=== PATIENT | male | born 1940 | race Hispanic/Latino ===

== ENCOUNTER 2017-06-09 12:08 | Observation (INO) | payer OTHER ==
[~2017-06-09] VITALS: Ht 180.3 cm; Wt 109.9 kg
[~2017-06-09 12:08] MED LIST: ALDACTONE25 MG PO; ASA81EC PO; ASPIRIN81 M1 PO; ASPIRIN81 MG PO; AZITHROMYCIN250 MG PO; DIGOXIN250 MCG PO; GABAPENTIN300 MG PO; GLIPIZIDE10 MG PO; GLUCOPHAGE1000 MG PO; HUMALOG MI100 UNIT/2 SC; HYDROXYZINE HCL25 MG PO; ISOSORBIDE DINI20 MG PO; LASIX20 MG PO; LASIX40 MG PO; LEVEMIR 3M100 UNITS/ SQ; LISINOPRIL20 MG PO; LOPRESSOR25 MG PO; LOPRESSOR50 MG PO; LYRICA150 MG PO; METOPROLOL TART25 MG PO; NIACIN500 M1 PO; NITROGLYCERIN0.4 MG SL; NOVOLIN 70100 UNIT/2 SQ; ONGLYZA5 MG PO; PANTOPRAZOLE SO20 MG PO; PLAVIX75 MG PO; ROBAXIN-750750 MG PO; SYNTHROID50 MCG PO; TESTOSTERO200 MG/1 M IM; TRIAMTERENE-HCTZ1 EA PO; ULTRAM 50MG50 MG PO; VITAMIN B12-FO1 EACH PO; VITAMIN C1000 MG PO; VITAMIN D32000 UNI1 PO; ZANAFLEX4 M1 PO; ZOCOR40 MG PO
[2017-06-09] MEDS ORDERED: DEXTROSE 50% SYRINGE 50 ML IV STA (13:44)
[2017-06-09 13:54] LABS: BASOPHILS # (AUTO) 0.1 (0.0-0.1); BASOPHILS % 0.8 % (0.0-1.0); EOSINOPHILS # (AUTO) 0.1 (0.0-0.4); EOSINOPHILS % 2.1 % (0.0-6.0); HEMATOCRIT 36.4 % (38.2-49.6); HEMOGLOBIN 11.7 g/dL (14.0-18.0); LYMPHOCYTES # (AUTO) 0.9 (1.0-3.2); LYMPHOCYTES % 12.9 % (18.0-39.1); MEAN CORPUSCULAR HEMOGLOBIN 29.8 pg (28-32); MEAN CORPUSCULAR HGB CONC 32.1 g/dL (31-35); MEAN CORPUSCULAR VOLUME 92.9 fL (81-99); MONOCYTES # (AUTO) 0.5 (0.2-0.8); MONOCYTES % 7.9 % (4.4-11.3); NEUTROPHILS % 76.1 % (38.7-80.0); PLATELET COUNT 217 x10e3/uL (140-360); RED BLOOD COUNT 3.92 x10e6/uL (4.3-5.7); RED CELL DISTRIBUTION WIDTH 14.6 % (11.7-14.4)
[2017-06-09 14:08] LABS: ALBUMIN 3.1 g/dL (3.5-5.0); ALBUMIN/GLOBULIN RATIO 0.7 (0.8-2.0); CREATININE, SERUM 1.94 mg/dL (0.72-1.25)
[2017-06-09] MEDS ORDERED: DEXTROSE 50% SYRINGE 50 ML IV ONE (14:30)
[2017-06-09 15:03] LABS: CREATINE KINASE MB 2.5 ng/mL (0.00-5.00); TROPONIN I 0.119 ng/mL (0-0.300)
[2017-06-09] MEDS ORDERED: PLAVIX75 MG PO (15:03)
[2017-06-09] MEDS ORDERED: SPIRONOLACTONE50 MG PO (15:07)
[2017-06-09] MEDS ORDERED: DEXTROSE 5%/0.9% SOD CHL 1,000 ML IV ONE (15:15)
--- NOTE | 2017-06-09 15:16 | Diagnostic Imaging Report ---
Examination: Single AP view of the chest. COMPARISON: November 24, 2016 INDICATION: Weakness hypoglycemia DISCUSSION: Lines/tubes: Sternotomy wires. Lungs: Pulmonary venous congestion. Pleura: There is no pleural effusion or pneumothorax. Heart and mediastinum: Cardiomegaly Bones and soft tissues: No acute bony abnormalities. IMPRESSION: Cardiomegaly with pulmonary venous congestion Signed by: Dr. Tapan Wu M.D. on 06/09/2017 3:12 PM
[2017-06-09] MEDS ORDERED: ASPIRIN 81 MG CHEW TAB PO ONE (15:30)
[2017-06-09] MEDS ORDERED: FUROSEMIDE INJ 10 MG/ML 4 ML VIAL IV ONE (16:00)
[2017-06-09 16:22] LABS: BILIRUBIN,URINE NEGATIVE (NEGATIVE); KETONES,URINE NEGATIVE (NEGATIVE); LEUKOCYTE ESTERASE ,URINE TRACE (NEGATIVE); NITRITE,URINE NEGATIVE (NEGATIVE); PROTEIN,URINE DIPSTICK NEGATIVE (NEGATIVE); URINE UROBILINOGEN 0.2 mg/dL (0.2 - 1)
[2017-06-09 16:24] LABS: CLARITY,URINE HAZY (CLEAR); COLOR,URINE YELLOW (YELLOW)
[2017-06-09 16:30] LABS: BACTERIA,URINE FEW /HPF; EPITHELIAL CELLS,URINE FEW /LPF; RBC,URINE 0-5 /HPF (0-5); WBC,URINE (MAN) 0-5 /HPF (0-5)
[2017-06-09] MEDS ORDERED: DEXTROSE 50% SYRINGE 50 ML IV PRN (17:45)
[2017-06-09] MEDS ORDERED: SODIUM CHLORIDE FLUSH 10 ML SYR INJ PRN (17:45)
[2017-06-09] MEDS ORDERED: DEXTROSE 10% 500 ML IV ONE (17:45)
[2017-06-09] MEDS: INSULIN REGULAR, HUMAN 100 UNIT/1 ML 3ML VIAL SQ SCH (20:55)
[2017-06-09 21:00] VITALS: BP 112/66
[2017-06-09 21:32] VITALS: BP 112/66
[2017-06-09 22:25] VITALS: BP 98/56
[2017-06-09 23:25] VITALS: BP 102/61
[2017-06-10] VITALS (15 sets, daily range): BP systolic 96–121; BP diastolic 55–79
[2017-06-10 05:54] LABS: BASOPHILS # (AUTO) 0.1 (0.0-0.1); EOSINOPHILS # (AUTO) 0.3 (0.0-0.4); EOSINOPHILS % 5.4 % (0.0-6.0); HEMATOCRIT 32.5 % (38.2-49.6); HEMOGLOBIN 10.5 g/dL (14.0-18.0); LYMPHOCYTES # (AUTO) 1.2 (1.0-3.2); LYMPHOCYTES % 18.9 % (18.0-39.1); MEAN CORPUSCULAR HEMOGLOBIN 29.4 pg (28-32); MEAN CORPUSCULAR HGB CONC 32.3 g/dL (31-35); MONOCYTES # (AUTO) 0.8 (0.2-0.8); MONOCYTES % 11.9 % (4.4-11.3); NEUTROPHILS # (AUTO) 3.9 (2.1-6.9); NEUTROPHILS % 62.5 % (38.7-80.0); PLATELET COUNT 217 x10e3/uL (140-360); RED BLOOD COUNT 3.57 x10e6/uL (4.3-5.7); RED CELL DISTRIBUTION WIDTH 14.5 % (11.7-14.4)
--- NOTE | 2017-06-10 06:47 | Diagnostic Imaging Report ---
EXAM: CHEST SINGLE (PORTABLE), AP 1 view DATE: 06/10/2017 7:00 AM Time stamp on exam: 0611 hours INDICATION: Congestive heart failure COMPARISON: None FINDINGS: LINES/TUBES: None LUNGS: Vascular congestion and bibasilar atelectasis PLEURA: No effusions or pneumothorax. HEART AND MEDIASTINUM: Cardiomegaly BONES AND SOFT TISSUES: No acute findings. IMPRESSION: No interval change Signed by: Dr. Alpa Chun M.D. on 06/10/2017 6:44 AM
[2017-06-10 07:05] LABS: CREATINE KINASE MB 2.3 ng/mL (0.00-5.00); TROPONIN I 0.215 ng/mL (0-0.300)
[2017-06-10 07:19] LABS: ANION GAP 11.9 mmol/L (8-16); CALCIUM 7.7 mg/dL (8.4-10.2); CREATININE, SERUM 1.71 mg/dL (0.72-1.25); POTASSIUM 3.9 mmol/L (3.5-5.1)
[2017-06-10] MEDS: INSULIN REGULAR, HUMAN 100 UNIT/1 ML 3ML VIAL SQ SCH ×3 (07:30→17:15)
[2017-06-10] MEDS: FUROSEMIDE INJ 10 MG/ML 4 ML VIAL IV SCH ×2 (10:10→17:18)
[2017-06-10 10:31] LABS: CREATINE KINASE MB 2.5 ng/mL (0.00-5.00); TROPONIN I 0.298 ng/mL (0-0.300)
[2017-06-10] MEDS ORDERED: DEXTROSE 5%/0.9% SOD CHL 0 ML IV ONE (14:42)
[2017-06-10] MEDS ORDERED: GABAPENTIN 300 MG CAP ONE (15:43)
[2017-06-10] MEDS ORDERED: NITROGLYCERIN 0.4 MG SUBL SL SCH (15:45)
[2017-06-10] MEDS ORDERED: GABAPENTIN 300 MG CAP PO ONE ×2 (16:15→19:00)
[2017-06-10] MEDS ORDERED: METOCLOPRAMIDE HCL 10 MG TAB PO SCH (16:30)
[2017-06-10] MEDS ORDERED: FUROSEMIDE 40 MG TAB PO SCH (17:00)
[2017-06-10] MEDS ORDERED: METOPROLOL TARTRATE 25 MG TAB PO SCH (17:00)
[2017-06-10] MEDS ORDERED: ISOSORBIDE DINITRATE 20 MG TAB PO SCH (17:00)
[2017-06-10] MEDS ORDERED: SPIRONOLACTONE 25 MG TAB PO SCH (17:00)
[2017-06-10] MEDS ORDERED: REGLAN10 MG PO (18:06)
[2017-06-10] MEDS ORDERED: TRAMADOL HCL 50 MG TAB PO SCH (21:00)
[2017-06-10] MEDS ORDERED: GABAPENTIN 300 MG CAP PO SCH (21:00)
[2017-06-10] MEDS ORDERED: SIMVASTATIN 20 MG TAB PO SCH (21:00)
[2017-06-11] MEDS ORDERED: LEVOTHYROXINE SODIUM 75 MCG TAB PO SCH (06:00)
[2017-06-11] MEDS ORDERED: PANTOPRAZOLE SOD 40 MG TABEC PO SCH (07:30)
[2017-06-11] MEDS ORDERED: ASCORBIC ACID 500 MG TAB PO SCH (09:00)
[2017-06-11] MEDS ORDERED: NON-FORMULARY MEDICATION (Cholecalciferol (Vitamin D3) (Vitamin D3) 1 TAB) PO SCH (09:00)
[2017-06-11] MEDS ORDERED: ASPIRIN 81 MG CHEW TAB PO SCH (09:00)
[2017-06-11] MEDS ORDERED: CLOPIDOGREL BISULFATE 75 MG TAB PO SCH (09:00)
--- NOTE | 2017-07-05 09:48 | History and Physical ---
Patient was placed in observation. CHIEF COMPLAINT: Generalized weakness. HISTORY: Patient is a 76-year-old male who came in with hypoglycemia. The patient stated that he was having some dizziness. The patient with low blood sugar. Apparently, he was taking some medication for his diabetes. The patient was otherwise stable. Blood sugar was much improved. He did receive multiple doses of D50. The patient is asymptomatic on visit. PAST MEDICAL HISTORY: Diabetes, type 2, hyperlipidemia, hypertension, hypothyroidism, history of chronic kidney disease, atrial fibrillation, and coronary disease. PAST SURGICAL HISTORY: Noncontributory. SOCIAL HISTORY: Patient does not smoke or use alcohol. No regular drugs. ALLERGIES: NO KNOWN ALLERGIES. HOME MEDICATIONS: List reviewed. REVIEW OF SYSTEMS: As mentioned above. The patient is completely asymptomatic. PHYSICAL EXAMINATION VITAL SIGNS: Temperature is 98, blood pressure 100/67, pulse rate 64, respirations 18. GENERAL: The patient is not in acute distress. He is awake. HEENT: Normocephalic, atraumatic and anicteric. NECK: Supple grossly. PULMONARY: Clear. CARDIOVASCULAR: Regular rate and rhythm. ABDOMEN: Soft and unremarkable. EXTREMITIES: No cyanosis or edema. NEUROLOGICAL: No focal deficit. LABORATORY: Sodium 135, potassium 3.9, chloride 107, bicarb 20, BUN 32, creatinine 1.7, glucose 98. WBC 6, hemoglobin 10.5, hematocrit 33, and platelets 217,000. IMPRESSION: Hypoglycemia, resolved. The patient is instructed on his insulin adjustment. He needs to eat if he takes insulin. Also, educated the patient on diabetes. The patient is discharged home to follow up with Dr. Kalen Anne, his family physician. The patient expressed understanding. He will follow up closely and monitor his blood sugar closely. Job#: [id number] ALDEN
--- NOTE | 2017-07-05 12:10 | Discharge Summary ---
FINAL DIAGNOSIS: Hypoglycemia secondary to taking insulin and not eating. HOSPITAL COURSE: Patient was given D50. He is doing much better. He is back to his usual baseline. Discussed with the patient at length regarding compliancy to insulin and diet. The patient expressed understanding. He will follow up with Dr. Kalen Anne. The patient wanted to go home today. The patient is discharged home. Job#: [id number] VAS
== END 2017-06-10 20:10 | disposition home or self-care (01) ==
LOC: ER 12:08 → INTOOBSV 17:54 → ERHOLD 17:54 → EDBEDREQSVC 19:40 → ICU 19:56
PROVIDERS: ADMIT Internal Medicine; ATTEND Internal Medicine
DX: E11.649 Type 2 diabetes mellitus with hypoglycemia without coma (principal); N17.9 Acute kidney failure, unspecified; E11.22 Type 2 diabetes mellitus with diabetic chronic kidney disease; I13.0 Hypertensive heart and chronic kidney disease with heart failure and stage 1 through stage 4 chronic kidney disease, or unspecified chronic kidney disease; I50.1 Left ventricular failure, unspecified; N18.9 Chronic kidney disease, unspecified; Z79.4 Long term (current) use of insulin; K21.9 Gastro-esophageal reflux disease without esophagitis; E03.9 Hypothyroidism, unspecified; I48.91 Unspecified atrial fibrillation; Z79.02 Long term (current) use of antithrombotics/antiplatelets; Z79.82 Long term (current) use of aspirin
CPT/HCPCS: 36415 ×2; 71010 ×2; 80048; 80053; 81001; 82550 ×2; 82553 ×2; 82948 ×2; 83735; 83880; 84443; 84484 ×2; 85025 ×2; 87086; 93005; 96361; 99284; G0378 ×2; J1940 ×2; J7042

== ENCOUNTER 2017-12-08 12:45 | Observation (INO) | payer OTHER ==
[~2017-12-08] VITALS: Ht 180.3 cm; Wt 123.4 kg
[~2017-12-08 12:45] MED LIST changes: +REGLAN10 MG PO; +SPIRONOLACTONE50 MG PO
--- OUTSIDE RECORDS SUMMARY | 2017-12-08 12:47 | XMS REPORT ---
Author Author [facility] Address Unknown Phone Unavailable Care Team Providers Care Meat Selector Name Role Phone AILYN VICKERS Unavailable Unavailable Problems This patient has no known problems. Allergies, Adverse Reactions, Alerts This patient has no known allergies or adverse reactions. Medications This patient has no known medications. Results Test Description Test Time Test Comments Text Results Atomic Results Result Comments CHEST SINGLE (PORTABLE) [address] [address] Patient Name: IVANNA PYLE MR #: [id number] : 1940 Age/Sex: 76/M Req #: [id number] Adm Physician: AILYN VICKERS MD Ordered by: CAROLINA CORTES MD Report #: [id number] Location: ICU Room/Bed: ICU [facility] Procedure: [id number] DX/CHEST SINGLE (PORTABLE) Exam Date: Exam Time: REPORT STATUS: Signed EXAM: CHEST SINGLE (PORTABLE), AP 1 view DATE: 06/10/2017 7:00 AM Time stamp on exam: 0611 hours INDICATION: Congestive heart failure COMPARISON: None FINDINGS: LINES/TUBES: None LUNGS: Vascular congestion and bibasilar atelectasis PLEURA: No effusions or pneumothorax. HEART AND MEDIASTINUM: Cardiomegaly BONES AND SOFT TISSUES: No acute findings. IMPRESSION: No interval change Signed by: Dr. Liu Chun M.D. on 06/10/2017 6:44 AM Dictated By: LIU CHUN MD Transcribed By: SINA on 643 COPY TO: CAROLINA CORTES MD CHEST SINGLE (PORTABLE) [place] [address] Patient Name: IVANNA PYLE MR #: [id number] : 1940 Age/Sex: 76/M Req #: [id number] Adm Physician: Ordered by: CAROLINA CORTES MD Report #: [id number] Location: ER Room/Bed: Procedure: [id number] DX/CHEST SINGLE (PORTABLE) Exam Date: 06/09/17 Exam Time: 1500 REPORT STATUS: Signed Examination: Single AP view of the chest. COMPARISON: November 24, 2016 INDICATION: Weakness hypoglycemia DISCUSSION: Lines/tubes: Sternotomy wires. Lungs: Pulmonary venous congestion. Pleura: There is no pleural effusion or pneumothorax. Heart and mediastinum: Cardiomegaly Bones and soft tissues: No acute bony abnormalities. IMPRESSION: Cardiomegaly with pulmonary venous congestion Signed by: Dr. Bernadine Quintero M.D. on 06/09/2017 3:12 PM Dictated By: BERNADINE QUINTERO MD 11 Transcribed By: SINA on 06/09/171511 COPY TO: CAROLINA CORTES MD
[2017-12-08 13:26] LABS: BASOPHILS # (AUTO) 0.1 (0.0-0.1); EOSINOPHILS # (AUTO) 0.3 (0.0-0.4); EOSINOPHILS % 5.1 % (0.0-6.0); HEMATOCRIT 37.6 % (38.2-49.6); HEMOGLOBIN 12.1 g/dL (14.0-18.0); LYMPHOCYTES # (AUTO) 0.7 (1.0-3.2); LYMPHOCYTES % 14.2 % (18.0-39.1); MEAN CORPUSCULAR HEMOGLOBIN 29.7 pg (28-32); MEAN CORPUSCULAR HGB CONC 32.2 g/dL (31-35); MEAN CORPUSCULAR VOLUME 92.4 fL (81-99); MONOCYTES # (AUTO) 0.5 (0.2-0.8); MONOCYTES % 9.3 % (4.4-11.3); NEUTROPHILS # (AUTO) 3.5 (2.1-6.9); PLATELET COUNT 157 x10e3/uL (140-360); RED BLOOD COUNT 4.07 x10e6/uL (4.3-5.7); RED CELL DISTRIBUTION WIDTH 16.5 % (11.7-14.4)
[2017-12-08] MEDS ORDERED: NITROGLYCERIN 0.4 MG SUBL SL ONE (13:30)
[2017-12-08] MEDS ORDERED: NITROGLYCERIN 2% OINT 1 GM PKT TOP ONE (13:30)
[2017-12-08 13:46] LABS: ALBUMIN 3.1 g/dL (3.5-5.0); ALBUMIN/GLOBULIN RATIO 0.7 (0.8-2.0); ANION GAP 14.3 mmol/L (8-16); CREATININE, SERUM 2.71 mg/dL (0.72-1.25); MAGNESIUM 1.6 MG/DL (1.3-2.1); POTASSIUM 4.3 mmol/L (3.5-5.1)
[2017-12-08 13:55] LABS: CREATINE KINASE MB 2.3 ng/mL (0-5.0)
[2017-12-08 14:08] LABS: FREE T4 (FREE THYROXINE) 0.98 ng/dL (0.9-1.8); THYROID STIMULATING HORMONE 4.114 uIU/mL (0.350-4.940)
--- NOTE | 2017-12-08 14:33 | Diagnostic Imaging Report ---
EXAMINATION: CHEST 2 VIEWS INDICATION: \S\DYSPNEA, RALES ON EXAM \[id number] \S\1325 COMPARISON: Chest radiograph 06/10/2017 FINDINGS: PA and lateral views TUBES and LINES: None. LUNGS: Lungs are moderately inflated. Central pulmonary venous congestion. Bibasilar atelectasis. PLEURA: Small right pleural effusion. No left effusion. No pneumothorax. HEART AND MEDIASTINUM: Stable moderate enlargement of the cardiac silhouette. Mediastinal clips. BONES AND SOFT TISSUES: No acute osseous lesion. Median sternotomy wires. Soft tissues are unremarkable. UPPER ABDOMEN: No free air under the diaphragm. IMPRESSION: Cardiomegaly with vascular congestion. Small right pleural effusion with adjacent atelectasis. Signed by: DR. Kade Wilks MD on 12/08/2017 2:29 PM
[2017-12-08] MEDS ORDERED: FUROSEMIDE INJ 10 MG/ML 4 ML VIAL IV ONE ×2 (15:00→16:00)
[2017-12-08] MEDS ORDERED: ASPIRIN 81 MG CHEW TAB PO ONE ×2 (15:00→16:00)
[2017-12-08] MEDS ORDERED: FUROSEMIDE INJ 10 MG/ML 4 ML VIAL ONE (15:05)
[2017-12-08] MEDS ORDERED: ASPIRIN 81 MG CHEW TAB ONE (15:05)
[2017-12-08 15:30] VITALS: BP 106/70
[2017-12-08 15:58] VITALS: BP 106/70
[2017-12-08] MEDS: FUROSEMIDE INJ 10 MG/ML 4 ML VIAL IV SCH (16:57)
[2017-12-08 19:57] VITALS: BP 106/70
[2017-12-08 20:00] VITALS: BP 111/70
[2017-12-08 21:05] VITALS: BP 111/70
[2017-12-08 21:06] LABS: BILIRUBIN,URINE NEGATIVE (NEGATIVE); CLARITY,URINE CLEAR (CLEAR); COLOR,URINE YELLOW (YELLOW); KETONES,URINE NEGATIVE (NEGATIVE); LEUKOCYTE ESTERASE ,URINE NEGATIVE (NEGATIVE); NITRITE,URINE NEGATIVE (NEGATIVE); PROTEIN,URINE DIPSTICK NEGATIVE (NEGATIVE); URINE UROBILINOGEN 0.2 mg/dL (0.2 - 1)
[2017-12-08 21:15] LABS: BACTERIA,URINE RARE /HPF; EPITHELIAL CELLS,URINE FEW /LPF; WBC,URINE (MAN) 0-5 /HPF (0-5)
[2017-12-09] VITALS (8 sets, daily range): BP systolic 98–106; BP diastolic 55–68
[2017-12-09 06:30] LABS: BASOPHILS # (AUTO) 0.1 (0.0-0.1); BASOPHILS % 1.1 % (0.0-1.0); EOSINOPHILS # (AUTO) 0.3 (0.0-0.4); EOSINOPHILS % 5.1 % (0.0-6.0); HEMATOCRIT 38.3 % (38.2-49.6); LYMPHOCYTES # (AUTO) 1.1 (1.0-3.2); LYMPHOCYTES % 19.6 % (18.0-39.1); MEAN CORPUSCULAR HEMOGLOBIN 29.3 pg (28-32); MEAN CORPUSCULAR HGB CONC 31.3 g/dL (31-35); MEAN CORPUSCULAR VOLUME 93.6 fL (81-99); MONOCYTES # (AUTO) 0.6 (0.2-0.8); MONOCYTES % 10.3 % (4.4-11.3); NEUTROPHILS # (AUTO) 3.6 (2.1-6.9); NEUTROPHILS % 63.7 % (38.7-80.0); PLATELET COUNT 166 x10e3/uL (140-360); RED BLOOD COUNT 4.09 x10e6/uL (4.3-5.7); RED CELL DISTRIBUTION WIDTH 16.4 % (11.7-14.4)
--- NOTE | 2017-12-09 06:37 | Diagnostic Imaging Report ---
EXAM: CHEST 2 VIEWS, PA and lateral INDICATION: Shortness of breath, congestive heart failure COMPARISON: PA and lateral view of the chest December 08, 2017 FINDINGS: LINES/TUBES: None LUNGS: Central vascular congestion and bibasilar atelectasis. PLEURA: Small bilateral pleural effusions. HEART AND MEDIASTINUM: Stable enlargement. BONES AND SOFT TISSUES: No acute findings. IMPRESSION: No interval change. Signed by: Dr. Alpa Chun M.D. on 12/09/2017 6:33 AM
[2017-12-09 07:09] LABS: ANION GAP 12.9 mmol/L (8-16); CALCIUM 9.2 mg/dL (8.4-10.2); CREATININE, SERUM 2.64 mg/dL (0.72-1.25); POTASSIUM 4.9 mmol/L (3.5-5.1)
[2017-12-09 07:18] LABS: CREATINE KINASE MB 1.8 ng/mL (0-5.0)
[2017-12-09] MEDS: FUROSEMIDE INJ 10 MG/ML 4 ML VIAL IV SCH ×4 (08:15→21:03)
[2017-12-09] MEDS ORDERED: NITROGLYCERIN 0.4 MG SUBL SL SCH (08:30)
[2017-12-09] MEDS ORDERED: METOCLOPRAMIDE HCL 10 MG TAB PO PRN (08:30)
[2017-12-09] MEDS ORDERED: LEVOTHYROXINE SODIUM 75 MCG TAB PO SCH (09:00)
[2017-12-09] MEDS ORDERED: METOPROLOL TARTRATE 25 MG TAB PO SCH ×2 (09:00→21:00)
[2017-12-09] MEDS ORDERED: NITROGLYCERIN 0.4 MG SUBL SL PRN (09:00)
[2017-12-09] MEDS: PANTOPRAZOLE SOD 40 MG TABEC PO SCH (09:38)
[2017-12-09] MEDS: METOLAZONE 5 MG TAB PO SCH (09:38)
[2017-12-09] MEDS: CLOPIDOGREL BISULFATE 75 MG TAB PO SCH (09:38)
[2017-12-09] MEDS: TRAMADOL HCL 50 MG TAB PO SCH ×3 (09:38→21:03)
[2017-12-09] MEDS: ASPIRIN 81 MG CHEW TAB PO SCH (09:38)
[2017-12-09] MEDS: SPIRONOLACTONE 25 MG TAB PO SCH ×2 (09:38→16:38)
--- NOTE | 2017-12-09 14:11 | History and Physical ---
The patient on observation. PRIMARY CARE PHYSICIAN: Dr. Kalen Anne. CHIEF COMPLAINT: Increasing swelling of lower extremities. HISTORY OF PRESENT ILLNESS: Patient is a 77-year-old male with chronic kidney disease and congestive heart failure at baseline. The patient is taking diuretics at home but feeling like he is having increasing shortness of breath. There is no pulmonary edema, but he does have vascular congestion on the chest x-ray. The patient is doing a little bit better with IV Lasix. The patient is stable at this time. PAST MEDICAL HISTORY: Chronic kidney disease, stage 3. Diabetes type 2. Hyperlipidemia. Hypertension. Hypothyroidism. History of paroxysmal atrial fibrillation. Coronary artery disease. PAST SURGICAL HISTORY: Noncontributory. SOCIAL HISTORY: Patient does not smoke or use alcohol. No recreational drugs. HOME MEDICATIONS: List reviewed. ALLERGIES: TO NO KNOWN ALLERGY. REVIEW OF SYSTEMS: As mentioned. PHYSICAL EXAMINATION: VITAL SIGNS: Temperature 98. Blood pressure 100/58. Pulse rate 67. Respirations 22. Exam no focal deficit. GENERAL: The patient is not in acute distress. He is awake. HEENT: Normocephalic, atraumatic. Anicteric. NECK: Supple grossly. PULMONARY: Diminished breath sounds at the bases with some rales. CARDIOVASCULAR: S1 and S2. Regular rate and rhythm. ABDOMEN: Soft, obese. EXTREMITIES: 2+ edema. NEUROLOGIC EXAM: No focal deficits. LABORATORY: Sodium is 139, potassium 4.9, chloride 101, bicarb 30. BUN 40, creatinine 2.6. Glucose 100. WBC is 5.7. Hemoglobin 12. Hematocrit is 38. Platelets is 166,000. IMPRESSION 1. Acute on chronic systolic dysfunction. 2. Congestive heart failure exacerbation. 3. Multiple chronic baseline problems. PLAN: Continue with IV Lasix 40 mg IV q.8 h.. Add on Zaroxolyn. Resume home medications except for oral furosemide. Adjust the patient's blood pressure medication. Job#: [id number]
[2017-12-09] MEDS: HUMULIN 70/30 VIAL SQ SCH (16:39)
[2017-12-09] MEDS ORDERED: GABAPENTIN 300 MG CAP PO SCH (21:00)
[2017-12-09] MEDS ORDERED: SIMVASTATIN 20 MG TAB PO SCH (21:00)
[2017-12-10] VITALS: BP 101/59
[2017-12-10 04:00] VITALS: BP 98/55
[2017-12-10] MEDS: FUROSEMIDE INJ 10 MG/ML 4 ML VIAL IV SCH (06:00)
[2017-12-10] MEDS ORDERED: LEVOTHYROXINE SODIUM 75 MCG TAB PO SCH (06:00)
[2017-12-10 06:14] LABS: BASOPHILS % 0.7 % (0.0-1.0); EOSINOPHILS # (AUTO) 0.3 (0.0-0.4); EOSINOPHILS % 5.7 % (0.0-6.0); HEMATOCRIT 37.6 % (38.2-49.6); HEMOGLOBIN 11.6 g/dL (14.0-18.0); LYMPHOCYTES # (AUTO) 0.9 (1.0-3.2); LYMPHOCYTES % 15.7 % (18.0-39.1); MEAN CORPUSCULAR HEMOGLOBIN 29.7 pg (28-32); MEAN CORPUSCULAR HGB CONC 30.9 g/dL (31-35); MEAN CORPUSCULAR VOLUME 96.4 fL (81-99); MONOCYTES # (AUTO) 0.7 (0.2-0.8); MONOCYTES % 13.7 % (4.4-11.3); NEUTROPHILS # (AUTO) 3.5 (2.1-6.9); PLATELET COUNT 153 x10e3/uL (140-360); RED CELL DISTRIBUTION WIDTH 16.3 % (11.7-14.4)
[2017-12-10 07:21] VITALS: BP 106/66
[2017-12-10] MEDS: PANTOPRAZOLE SOD 40 MG TABEC PO SCH (09:23)
[2017-12-10] MEDS: TRAMADOL HCL 50 MG TAB PO SCH (09:24)
[2017-12-10] MEDS: CLOPIDOGREL BISULFATE 75 MG TAB PO SCH (09:24)
[2017-12-10] MEDS: METOLAZONE 5 MG TAB PO SCH (09:24)
[2017-12-10] MEDS: SPIRONOLACTONE 25 MG TAB PO SCH (09:25)
[2017-12-10] MEDS: ASPIRIN 81 MG CHEW TAB PO SCH (09:25)
[2017-12-10] MEDS: HUMULIN 70/30 VIAL SQ SCH (09:27)
[2017-12-10 10:01] VITALS: BP 106/66
[2017-12-10 11:42] VITALS: BP 101/61
--- NOTE | 2017-12-10 13:26 | Discharge Summary ---
OBSERVATION PCP: Dr. Kalen Anne FINAL DIAGNOSES 1. [id number] systolic dysfunction congestive heart failure exacerbation. 2. Chronic kidney disease, stage 3 to stage 4. 3. Morbid obesity, baseline. 4. Coronary artery bypass surgery. 5. Cardiomyopathy. Ejection fraction 20% to 25%. SUMMARY: Patient is a 77-year-old male who came in with acute exacerbation of systolic dysfunction congestive heart failure. The patient at baseline with coronary disease with bypass surgery. He also had multiple chronic medical problems as well. He came in with increasing lower extremity edema. Apparently, he was not taking enough diuretic, and more importantly his blood pressure was systolic in the 100 and heart rate 50-60. His medication has been adjusted. He was add on metolazone 20 mg daily. He did receive a dose. He did diurese very well. His beta gary has been cut down. He will stop the isosorbide for now due to his blood pressure. Today, the patient is doing much better. He is diuresing well. He will be discharged home with the following instructions: 1. Stop the metoprolol 25 mg twice a day. 2. Isosorbide. Add on Lopressor 12.5 mg at night. 3. Add on Zaroxolyn 10 mg daily. He will continue his diuretic and other medications as the same. The patient is stable and discharged home today. He is comfortable. He does want to go home. He does have oxygen at home. The patient was discharged home today. Follow up with Dr. Kalen Anne, his PCP, and Dr. Brennon Blanco, his sandwich maker within this week. Job#: [id number] ALDEN
== END 2017-12-10 12:05 | disposition home or self-care (01) ==
LOC: ER 12:45 → ERHOLD 15:01 → IMCU 15:20
PROVIDERS: ADMIT Internal Medicine; ATTEND Internal Medicine
DX: I13.0 Hypertensive heart and chronic kidney disease with heart failure and stage 1 through stage 4 chronic kidney disease, or unspecified chronic kidney disease (principal); I50.23 Acute on chronic systolic (congestive) heart failure; E11.22 Type 2 diabetes mellitus with diabetic chronic kidney disease; I25.10 Atherosclerotic heart disease of native coronary artery without angina pectoris; Z95.1 Presence of aortocoronary bypass graft; N18.3 Chronic kidney disease, stage 3 (moderate); E78.5 Hyperlipidemia, unspecified; E03.9 Hypothyroidism, unspecified; I48.0 Paroxysmal atrial fibrillation; E66.01 Morbid (severe) obesity due to excess calories; I42.9 Cardiomyopathy, unspecified; Z68.37 Body mass index [BMI] 37.0-37.9, adult
CPT/HCPCS: 99284; J1940 ×2; S0164

== ENCOUNTER 2017-12-12 06:33 | Inpatient (IN) | payer OTHER ==
[~2017-12-12] VITALS: Ht 180.3 cm; Wt 126.6 kg
--- OUTSIDE RECORDS SUMMARY | 2017-12-12 06:38 | XMS REPORT | Continuity of Care Document ---
Author Author [facility] Organization [facility] Address [address] [place] [address] Phone Unavailable Care Team Providers Care Wood Boatbuilder Name Role Phone DWAIN DAVIS MD PCP Insurance Providers Guarantor Uziel Pyle Address [address] [place] [address] Email NONE Payer [facility] [employer] Policy Number [id number] Subscriber's Name Uziel Pyle Relationship 18 Self / Same As Patient Group Number [id number] Group Name [employer] - Medicare Advantage Divis Effective Date 17 Advance Directives Directive Response Recorded Date/Time Does the patient have an advance directive? No 12/08/17 3:52pm If yes, is advance directive on file with [facility]? No 12/08/17 3:52pm If not on file with [facility] will patient provide a copy? No 12/08/17 3:52pm Do you have a Directive to Physician? No 12/08/17 1:29pm Do you have a Medical Power of Workplace Relations Adviser? No 12/08/17 1:29pm Do you have an out of hospital Do Not Resuscitate Order? No 12/08/17 1:29pm Do you have any special needs we should be aware of? No 12/08/17 1:29pm Do you have a support person here with you today? Yes 12/08/17 1:29pm Did patient receive Notice of Privacy Practices? Yes 12/08/17 1:29pm Did patient receive patient rights and responsibilities? Yes 12/08/17 1:29pm Problems Medical Problem Onset Date Status CHF (congestive heart failure) Unknown CKD (chronic kidney disease) Unknown Chest pain 01/15/2015 Acute Non-STEMI (non-ST elevated myocardial infarction) 01/15/2015 Acute Peripheral edema Unknown SOB (shortness of breath) on exertion Unknown Medications Current Home Medications Medication Dose Units Route Directions Days Qty Instructions Start Date Aspirin 81 Mg Tab.chew 81 Mg Oral Daily Clopidogrel Bisulfate (Plavix) 75 Mg Tablet 75 Mg Oral Daily 30 Tab Furosemide (Lasix) 40 Mg Tablet 40 Mg Oral Twice A Day 30 Tab Gabapentin 300 Mg Capsule 300 Mg Oral Bedtime 60 Cap Hum Insulin Nph/Reg Insulin Hm (Novolin 70-30 [place]) 100 Unit/1 Ml Insuln.pen 25 Units Sub-Q Twice A Day Levothyroxine Sodium (Synthroid) 50 Mcg Tab 75 Mcg Oral Daily Metoclopramide Hcl (Reglan) 10 Mg Tablet 10 Mg Oral Before Meals as needed for Bloating Nitroglycerin 0.4 Mg Tab.subl 0.4 Mg Sublingual Every 5 Minutes Pantoprazole Sodium 20 Mg Tablet.dr 40 Mg Oral Daily Simvastatin (Zocor) 40 Mg Tablet 20 Mg Oral Bedtime Spironolactone (Aldactone) 25 Mg Tablet 50 Mg Oral Twice A Day Testosterone Cypionate 200 Mg/1 Ml Vial 200 Mg Intramusc Monthly Tramadol Hcl (Ultram 50MG*) 50 Mg Tab 50 Mg Oral Three Times A Day Past Home Medications Medication Directions Ordered Status [id number] 81 Mg Tabec, 81 Mg Oral Every Morning 01/21/15 Discontinued Ascorbic Acid (Vitamin C) 1,000 Mg Tablet, 1 Tab Oral Daily Discontinued Aspirin 81 Mg Tablet, 81 Mg Oral Daily Discontinued Azithromycin (Z-Collin) 250 Mg Tablet, Tab Oral Daily Discontinued Cholecalciferol (Vitamin D3) (Vitamin D3) 2,000 Unit Tablet, 1 Tab Oral Daily Discontinued Clopidogrel Bisulfate (Plavix) 75 Mg Tablet, 75 Mg Oral Daily 01/21/15 Discontinued Cyanocobalamin/Folic Acid (Vitamin T79-Dnitd Acid Tablet) 1 Each Tablet, 1000 Mcg Oral Daily Discontinued Digoxin 250 Mcg Tablet, 250 Mcg Oral Daily Discontinued Furosemide (Lasix) 20 Mg Tablet, 20 Mg Oral Every Morning Discontinued Glipizide 10 Mg Tablet, 10 Mg Oral Twice A Day Discontinued Hum Insulin Nph/Reg Insulin Hm (Novolin 70-30 [place]) 100 Unit/1 Ml Insuln.pen , 60 Units Sub-Q Pm Discontinued Hydroxyzine Hcl 25 Mg Tablet, 25 Mg Oral Qid Prn Discontinued Insulin Detemir (Levemir 3ML Flexpen*) 100 Units/Ml Inj, Sub-Q Bedtime Discontinued Insulin Npl/Insulin Lispro (Humalog Mix 75-25 Kwikpen) 100 Unit/1 Ml Insuln.pen , Subcutaneously Every Morning Discontinued Isosorbide Dinitrate 20 Mg Tablet, 20 Mg Oral Twice A Day Discontinued Isosorbide Dinitrate 20 Mg Tablet, 10 Mg Oral Twice A Day 01/21/15 Discontinued Lisinopril (Prinavil / Zestril) 20 Mg Tablet, 20 Mg Oral Twice A Day Discontinued Metformin Hcl (Glucophage) 1,000 Mg Tablet, 1000 Mg Oral Twice A Day Discontinued Methocarbamol (Robaxin-750) 750 Mg Tablet, 750 Mg Oral Twice A Day Discontinued Metoprolol Tartrate 25 Mg Tablet, 25 Mg Oral Twice A Day Discontinued Metoprolol Tartrate (Lopressor) 25 Mg Tab, 6.25 Mg Oral Twice A Day 01/21/15 Discontinued Metoprolol Tartrate (Lopressor) 50 Mg Tablet, 50 Mg Oral Twice A Day Discontinued Niacin 500 Mg Tablet, 500 Mg Oral Bedtime Discontinued Pregabalin (Lyrica) 150 Mg Capsule, 150 Mg Oral Twice A Day Discontinued Saxagliptin Hcl (Onglyza) 5 Mg Tablet, 5 Mg Oral Daily Discontinued Spironolactone 50 Mg Tablet, 50 Mg Oral Daily Discontinued Tizanidine Hcl (Zanaflex) 4 Mg Capsule, 1 Cap Oral Every 6 Hours as needed for Cramps Discontinued Triamterene/Hctz (Triamterene-Hctz 37.5-25 Mg Tb) 1 Ea Tab, 1 Each Oral Daily Discontinued Family History Relationship Condition Age at Onset Recorded Date/Time 33 Father Family history of acute myocardial infarction Not Recorded 2014 10:56pm 32 Father Family history of hypertension Not Recorded 01/15/2015 10:56pm Social History Social History Problem Response Recorded Date/Time Onset Date Status Hx Psychiatric Problems No 12/08/2017 3:52pm Not Applicable Not Applicable Hx Eating Disorder No 12/08/2017 3:52pm Not Applicable Not Applicable Hx Substance Use Disorder No 12/08/2017 3:52pm Not Applicable Not Applicable Hx Depression No 12/08/2017 3:52pm Not Applicable Not Applicable Hx Alcohol Use No 12/08/2017 3:52pm Not Applicable Not Applicable Hx Substance Use Treatment No 12/08/2017 3:52pm Not Applicable Not Applicable Hx Physical Abuse No 12/08/2017 3:52pm Not Applicable Not Applicable Smoking Status Start Date Stop Date Never Smoker Hospital Discharge Instructions No hospital discharge instruction information available. Plan of Care Discharge Date 12/10/17 12:05pm Disposition HOME, SELF-CARE Instructions/Education Provided Dependent Edema Dyspnea Congestive Heart Failure Prescriptions See Medication Section Additional Instructions/Education Activity: as you tolerate Diet: Renal/diabetic follow up with primary care doctor in 1-2 weeks call for appoitnment. follow up with your cadiologist and with kidney doctor call to make an appointment. Functional Status Query Response Date Recorded Assistive Devices None December 08, 2017 3:58pm Ambulation Ability Independent December 08, 2017 3:58pm Toileting Ability Independent December 08, 2017 5:36pm Allergies, Adverse Reactions, Alerts No known allergies. Immunizations No immunization information available. Vital Signs Acute Vital Signs Vital Response Date/Time Temperature (Fahrenheit) 98.3 degrees F (97.6 - 99.5) 12/10/2017 11:42am Pulse Pulse Rate (adult) 64 bpm (60 - 90) 12/10/2017 11:42am Respiratory Rate 19 bpm (12 - 24) 12/10/2017 11:42am Blood Pressure 101/61 mm Hg 12/10/2017 11:42am Height 5 ft 11 in 12/08/2017 12:55pm Weight 272 lb 12/09/2017 12:00am Body Mass Index 37.9 kg/m^2 12/09/2017 12:00am Results Laboratory Results Test Name Result Units Flags Reference Collection Date/Time Result Date/ Time Comments White Blood Count 5.40 x10e3/uL 4.8-10.8 12/10/2017 6:00am 12/10/2017 6 :19am Red Blood Count 3.90 x10e6/uL L 4.3-5.7 12/10/2017 6:00am 12/10/2017 6: 19am Hemoglobin 11.6 g/dL L 14.0-18.0 12/10/2017 6:00am 12/10/2017 6:19am Hematocrit 37.6 % L 38.2-49.6 12/10/2017 6:00am 12/10/2017 6:19am Mean Corpuscular Volume 96.4 fL 81-99 12/10/2017 6:00am 12/10/2017 6: 19am Mean Corpuscular Hemoglobin 29.7 pg 28-32 12/10/2017 6:00am 12/10/2017 6:19am Mean Corpuscular Hemoglobin Concent 30.9 g/dL L 31-35 12/10/2017 6:00am 12/10/2017 6:19am Red Cell Distribution Width 16.3 % H 11.7-14.4 12/10/2017 6:00am 2017 6:19am Platelet Count 153 x10e3/uL 140-360 12/10/2017 6:00am 12/10/2017 6: 19am Neutrophils (%) (Auto) 64.0 % 38.7-80.0 12/10/2017 6:00am 12/10/2017 6: 19am Lymphocytes (%) (Auto) 15.7 % L 18.0-39.1 12/10/2017 6:00am 12/10/2017 6 :19am Monocytes (%) (Auto) 13.7 % H 4.4-11.3 12/10/2017 6:00am 12/10/2017 6: 19am Eosinophils (%) (Auto) 5.7 % 0.0-6.0 12/10/2017 6:00am 12/10/2017 6: 19am Basophils (%) (Auto) 0.7 % 0.0-1.0 12/10/2017 6:00am 12/10/2017 6:19am IM GRANULOCYTES % 0.2 % 0.0-1.0 12/10/2017 6:00am 12/10/2017 6:19am Neutrophils # (Auto) 3.5 2.1-6.9 12/10/2017 6:00am 12/10/2017 6:19am Lymphocytes # (Auto) 0.9 L 1.0-3.2 12/10/2017 6:00am 12/10/2017 6: 19am Monocytes # (Auto) 0.7 0.2-0.8 12/10/2017 6:00am 12/10/2017 6:19am Eosinophils # (Auto) 0.3 0.0-0.4 12/10/2017 6:00am 12/10/2017 6:19am Basophils # (Auto) 0.0 0.0-0.1 12/10/2017 6:00am 12/10/2017 6:19am Absolute Immature Granulocyte (auto 0.01 x10e3/uL 0-0.1 12/10/2017 6: 00am 12/10/2017 6:19am Urine Color YELLOW YELLOW 12/08/2017 5:00pm 12/08/2017 9:07pm Urine Clarity CLEAR CLEAR 12/08/2017 5:00pm 12/08/2017 9:07pm Urine Specific [place] 1.015 1.010-1.025 12/08/2017 5:00pm 2017 9:07pm Urine pH 5 5 - 7 12/08/2017 5:00pm 12/08/2017 9:07pm Urine Leukocyte Esterase NEGATIVE NEGATIVE 12/08/2017 5:00pm 2017 9:07pm Urine Nitrite NEGATIVE NEGATIVE 12/08/2017 5:00pm 12/08/2017 9:07pm Urine Protein NEGATIVE NEGATIVE 12/08/2017 5:00pm 12/08/2017 9:07pm Urine Glucose (UA) NEGATIVE NEGATIVE 12/08/2017 5:00pm 12/08/2017 9: 07pm Urine Ketones NEGATIVE NEGATIVE 12/08/2017 5:00pm 12/08/2017 9:07pm Urine Urobilinogen 0.2 mg/dL 0.2 - 1 12/08/2017 5:00pm 12/08/2017 9: 07pm Urine Bilirubin NEGATIVE NEGATIVE 12/08/2017 5:00pm 12/08/2017 9: 07pm Urine Blood NEGATIVE NEGATIVE 12/08/2017 5:00pm 12/08/2017 9:07pm Urine WBC 0-5 /HPF 0-5 12/08/2017 5:00pm 12/08/2017 9:15pm Urine RBC NONE /HPF 0-5 12/08/2017 5:00pm 12/08/2017 9:15pm Urine Bacteria RARE /HPF NONE 12/08/2017 5:00pm 12/08/2017 9:15pm Urine Epithelial Cells FEW /LPF NONE 12/08/2017 5:00pm 12/08/2017 9: 15pm Sodium Level 139 mmol/L 136-145 12/09/2017 6:00am 12/09/2017 7:26am Potassium Level 4.9 mmol/L 3.5-5.1 12/09/2017 6:00am 12/09/2017 7:26am Chloride Level 101 mmol/L 98-107 12/09/2017 6:00am 12/09/2017 7:26am Carbon Dioxide Level 30 mmol/L H -12/09/2017 6:00am 12/09/2017 7: 26am Anion Gap 12.9 mmol/L 8-12/09/2017 6:00am 12/09/2017 7:26am Blood Urea Nitrogen 40 mg/dL H 02-0712/09/2017 6:00am 12/09/2017 7:26am Creatinine 2.64 mg/dL H 0.72-1.25 12/09/2017 6:00am 12/09/2017 7:26am BUN/Creatinine Ratio 15 01-0712/09/2017 6:00am 12/09/2017 7:26am Estimat Glomerular Filtration Rate 24 ML/MIN L 60- 12/09/2017 6:00am 7:26am Ranges were taken from the National Kidney Disease Education Program and the National Kid[employer] Foundation literature. Reference ranges: 60 or greater: Normal 16-59 (for 3 consecutive months): Chronic kidney disease 15 or less: Kidney failure Glucose Level 101 mg/dL 74-118 12/09/2017 6:00am 12/09/2017 7:26am Calcium Level 9.2 mg/dL 8.4-10.2 12/09/2017 6:00am 12/09/2017 7:26am Bedside Glucose 89 mg/dL 70-120 12/10/2017 11:20am 12/10/2017 11:31am Meter ID: [id number] Magnesium Level 1.6 MG/DL 1.3-2.1 12/08/2017 1:16pm 12/08/2017 1:52pm Total Bilirubin 1.3 mg/dL H 0.2-1.2 12/08/2017 1:16pm 12/08/2017 1:52pm Aspartate Amino Transf (AST/SGOT) 24 IU/L 5-34 12/08/2017 1:16pm 2017 1:52pm Alanine Aminotransferase (ALT/SGPT) 15 IU/L 0-55 12/08/2017 1:16pm 1:52pm Total Protein 7.4 g/dL 6.5-8.1 12/08/2017 1:16pm 12/08/2017 1:52pm Albumin 3.1 g/dL L 3.5-5.0 12/08/2017 1:16pm 12/08/2017 1:52pm Globulin 4.3 g/dL H 2.3-3.5 12/08/2017 1:16pm 12/08/2017 1:52pm Albumin/Globulin Ratio 0.7 L 0.8-2.0 12/08/2017 1:16pm 12/08/2017 1: 52pm Alkaline Phosphatase 97 IU/L 40-150 12/08/2017 1:16pm 12/08/2017 1: 52pm B-Type Natriuretic Peptide 2516.6 pg/mL H 0-100 12/08/2017 1:16pm 2017 1:53pm Creatine Kinase 29 IU/L L 30-200 12/09/2017 2:14pm 12/09/2017 3:01pm Creatine Kinase MB 2.00 ng/mL 0-5.0 12/09/2017 2:14pm 12/09/2017 3: 08pm Troponin I 0.027 ng/mL 0-0.300 12/09/2017 2:14pm 12/09/2017 3:08pm Free Thyroxine 0.98 ng/dL 0.9-1.8 12/08/2017 1:16pm 12/08/2017 2:09pm Thyroid Stimulating Hormone (TSH) 4.114 uIU/mL 0.350-4.940 12/08/2017 1: 16pm 12/08/2017 2:09pm Procedures Procedure Status Date Provider(s) X-ray of chest, two views Active 12/08/17 AILYN GIRALDO DO X-ray of chest, two views Active 12/09/17 AILYN GIRALDO DO Encounters Encounter Location Arrival/Admit Date Discharge/Depart Date Attending Provider Discharged Inpatient (obs) [facility] 12/08/17 3:01pm 12:05pm AILYN VICKERS MD Discharged Inpatient (obs) [facility] 06/09/17 5:54pm 8:10pm AILYN VICKERS MD
[2017-12-12 06:58] LABS: BASOPHILS % 0.4 % (0.0-1.0); EOSINOPHILS % 0.2 % (0.0-6.0); LYMPHOCYTES # (AUTO) 0.4 (1.0-3.2); LYMPHOCYTES % 3.6 % (18.0-39.1); MEAN CORPUSCULAR HEMOGLOBIN 29.3 pg (28-32); MEAN CORPUSCULAR HGB CONC 31.6 g/dL (31-35); MEAN CORPUSCULAR VOLUME 92.9 fL (81-99); MONOCYTES # (AUTO) 0.7 (0.2-0.8); MONOCYTES % 7.2 % (4.4-11.3); NEUTROPHILS % 88.3 % (38.7-80.0); PLATELET COUNT 157 x10e3/uL (140-360); RED BLOOD COUNT 4.09 x10e6/uL (4.3-5.7); RED CELL DISTRIBUTION WIDTH 16.2 % (11.7-14.4)
[2017-12-12 07:06] LABS: INR 1.58; PROTHROMBIN TIME 17.7 seconds (11.9-14.5)
[2017-12-12 07:07] LABS: PARTIAL THROMBOPLASTIN TIME 35.2 seconds (23.8-35.5)
[2017-12-12 07:16] LABS: ALBUMIN 3.1 g/dL (3.5-5.0); ALBUMIN/GLOBULIN RATIO 0.7 (0.8-2.0); ANION GAP 13.7 mmol/L (8-16); CALCIUM 8.9 mg/dL (8.4-10.2); CREATININE, SERUM 2.79 mg/dL (0.72-1.25); POTASSIUM 4.7 mmol/L (3.5-5.1)
--- NOTE | 2017-12-12 08:00 | Diagnostic Imaging Report ---
Exam: Head CT without contrast History: Weakness, fatigue Comparison studies: Head CT 01/15/2015. Technique: Axial images were obtained from the skull base to the vertex. Coronal and sagittal images reconstructed from the axial data. Intravenous contrast: None Findings: Scalp: No abnormalities. Bones: No fractures, blastic or lytic lesions. Brain sulci: Mildly prominent. Ventricles: Mild compensatory dilatation. No hydrocephalus. Extra-axial spaces: No masses, no fluid collection. Parenchyma: No mass, acute hemorrhage or acute cortical vascular insults. A few scattered hypodensities in the supratentorial white matter are nonspecific but most compatible with chronic small vessel ischemic changes. Unchanged small right middle frontal cortical-subcortical insult. Sellar/suprasellar region: No abnormalities. Craniocervical junction: Patent foramen magnum. No Chiari one malformation. Incidental findings: Atherosclerotic calcifications in the carotid siphons and intradural vertebral arteries. IMPRESSION: No acute intracranial abnormalities. No changes from the previous head CT of 01/15/2015. Chronic findings: 1. Mild generalized volume loss. 2. Small right middle cortical/subcortical insult. 3. Mildly confluent supratentorial microvascular ischemic changes. Signed by: Dr. Jeovany Rowe M.D. on 12/12/2017 7:57 AM
--- NOTE | 2017-12-12 08:02 | Diagnostic Imaging Report ---
PROCEDURE: X-RAY CHEST, TWO VIEWS COMPARISON: 12/09/2017. INDICATIONS: WEAKNESS, SHORTNESS OF BREATH FINDINGS: Lung volumes remain low with prominence of the central vasculature. Stable small right pleural effusion with adjacent lower lobe airspace opacity likely passive atelectasis. Trace left pleural effusion. No new consolidation. Stable enlargement of the cardiac silhouette with postsurgical changes of the mediastinum and atherosclerotic calcification of the aortic arch. No acute osseous abnormality.. CONCLUSION: Stable appearance of the chest relative to 12/09/2017. Persistent findings include cardiomegaly with pulmonary venous congestion and small right and trace left pleural effusions. Dictated by: Jeovany Samayoa M.D. on 12/12/2017 at 8:05 Electronically approved by: Jeovany Samayoa M.D. on 12/12/2017 at 8:05
[2017-12-12] MEDS ORDERED: CEFEPIME HCL 1 GM VIAL IV STA (08:21)
[2017-12-12] MEDS ORDERED: ASPIRIN 81 MG CHEW TAB PO ONE (08:30)
[2017-12-12] MEDS ORDERED: SODIUM CHLORIDE FLUSH 10 ML SYR INJ PRN (08:30)
[2017-12-12] MEDS ORDERED: DEXTROSE 50% SYRINGE 50 ML IV PRN (08:30)
[2017-12-12 10:18] LABS: BAND NEUTROPHILS % (MANUAL) 3 %; HYPOCHROMASIA SLIGHT; LYMPHOCYTES % (MANUAL) 4 % (19-48); MONOCYTES % (MANUAL) 6 % (3.4-9.0); NEUTROPHILS % (MANUAL) 87 % (40-74); PLATELET ESTIMATE ADEQUATE; PLATELET MORPHOLOGY COMMENT FEW LARGE; POIKILOCYTOSIS SLIGHT; RBC MORPHOLOGY COMMENT NORMAL
[2017-12-12] MEDS: INSULIN REGULAR, HUMAN 100 UNIT/1 ML 3ML VIAL SQ SCH ×2 (11:30→21:00)
[2017-12-12 12:15] VITALS: BP 112/55
[2017-12-12 16:00] VITALS: BP 110/67
[2017-12-12 16:16] LABS: CREATINE KINASE MB 2.1 ng/mL (0-5.0)
[2017-12-12 16:36] VITALS: BP 112/55
[2017-12-12 20:00] VITALS: BP 93/54
[2017-12-12] MEDS ORDERED: TRAMADOL HCL 50 MG TAB PO PRN (20:45)
[2017-12-12] MEDS ORDERED: METOPROLOL TART25 MG PO (21:59)
[2017-12-12] MEDS ORDERED: VITAMIN C1000 MG PO (21:59)
[2017-12-12] MEDS ORDERED: ARICEPT5 MG PO (21:59)
[2017-12-12] MEDS ORDERED: FERROUS SULFAT325 MG PO (21:59)
[2017-12-12] MEDS ORDERED: NOVOLOG MI100 UNIT/1 SC (21:59)
[2017-12-12] MEDS ORDERED: ISOSORBIDE MONO20 MG PO (21:59)
[2017-12-12] MEDS: ALBUTEROL/IPRATROPIUM 3 ML NEB NEB PRN (22:45)
[2017-12-13] VITALS (7 sets, daily range): BP systolic 93–113; BP diastolic 51–66
[2017-12-13] MEDS: ALBUTEROL/IPRATROPIUM 3 ML NEB NEB PRN ×2 (00:30→06:59)
[2017-12-13 03:26] LABS: CREATINE KINASE MB 1.8 ng/mL (0-5.0)
[2017-12-13 06:00] LABS: BASOPHILS % 0.2 % (0.0-1.0); HEMATOCRIT 36.9 % (38.2-49.6); HEMOGLOBIN 11.6 g/dL (14.0-18.0); LYMPHOCYTES # (AUTO) 0.5 (1.0-3.2); LYMPHOCYTES % 4.3 % (18.0-39.1); MEAN CORPUSCULAR HEMOGLOBIN 29.4 pg (28-32); MEAN CORPUSCULAR HGB CONC 31.4 g/dL (31-35); MEAN CORPUSCULAR VOLUME 93.7 fL (81-99); MONOCYTES # (AUTO) 0.6 (0.2-0.8); MONOCYTES % 5.5 % (4.4-11.3); NEUTROPHILS # (AUTO) 10.1 (2.1-6.9); NEUTROPHILS % 89.3 % (38.7-80.0); PLATELET COUNT 146 x10e3/uL (140-360); RED BLOOD COUNT 3.94 x10e6/uL (4.3-5.7); RED CELL DISTRIBUTION WIDTH 16.5 % (11.7-14.4)
[2017-12-13 06:25] LABS: ALBUMIN 2.8 g/dL (3.5-5.0); ALBUMIN/GLOBULIN RATIO 0.7 (0.8-2.0); ANION GAP 15.2 mmol/L (8-16); CALCIUM 8.9 mg/dL (8.4-10.2); CREATININE, SERUM 3.03 mg/dL (0.72-1.25); POTASSIUM 5.2 mmol/L (3.5-5.1)
[2017-12-13] MEDS: POLYETHYLENE GLYCOL 3350 17 GM PACK PO SCH (09:00)
[2017-12-13] MEDS: INSULIN REGULAR, HUMAN 100 UNIT/1 ML 3ML VIAL SQ SCH ×4 (09:01→21:00)
--- NOTE | 2017-12-13 10:06 | History and Physical ---
PCP: Dr. Kalen Anne CHIEF COMPLAINT: Altered mental status and [id number] heart failure exacerbation. SUMMARY: The patient is a 77-year-old male with advanced systolic dysfunction heart failure, came in with increasing shortness of breath and increasing lower extremity edema. He is also having increasing altered mental status. CT of brain with no bleed, but there is some abnormal spot. He also has chronic kidney disease, stage 3. The patient is otherwise stable. 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 Baseline, he does have PAF and coronary disease. There is no previous intervention on last year cardiac catheterization. PAST MEDICAL HISTORY: Cardiomyopathy, paroxysmal atrial fibrillation, pulmonary hypertension, hypertension, dyslipidemia, hypothyroid, chronic kidney disease, stage 3-4, diabetes, type 2, on insulin. PAST SURGICAL HISTORY: Coronary artery bypass surgery. SOCIAL HISTORY: Patient does not smoke or use alcohol. No recreational drugs. ALLERGIES: NO KNOWN ALLERGIES. HOME MEDICATIONS: List reviewed. REVIEW OF SYSTEMS: As mentioned above. PHYSICAL EXAMINATION VITAL SIGNS: Temperature is 98, blood pressure 93/51, pulse rate is 85, respirations 22. GENERAL: The patient is not in acute distress. He is awake. HEENT: Normocephalic, atraumatic and anicteric. NECK: Supple grossly. PULMONARY: Bilateral coarses and rales at the bases. CARDIOVASCULAR: S1 and S2. Regular rate and rhythm. Low voltage. ABDOMEN: Soft and morbidly obese. EXTREMITIES: No gross cyanosis, but positive for 3+ edema. Chronic venous stasis skin changes. NEUROLOGICAL: No focal deficit at this time. Patient moving all extremities and coherent, alert, awake times 3. LABORATORY: Sodium is 136, potassium 5.2, chloride 98, bicarb 28, BUN 56, creatinine 3.2, glucose 90. WBC 11, hemoglobin 11.6, hematocrit 37, and platelets are 146,000. INR is 1.58. IMPRESSION 1. Fnfrc-pw-dazmfct systolic dysfunction congestive heart failure exacerbation. 2. Altered mental status: Possible ischemic cerebrovascular accident. 3. Multiple chronic baseline problems, including chronic kidney disease, stage 3-4. 4. Pulmonary hypertension. 5. Obesity. 6. Cardiomyopathy. PLAN: Consultation with Dr. Lili Malik and Dr. Brennon Blanco. Echocardiogram. CT of the chest without contrast. Diuretic. Home medication adjustment. Monitor the patient's blood pressure. Will continue with the treatment. Will follow up with cardiology and nephrology consultation. Job#: [id number] [place]
--- NOTE | 2017-12-13 10:55 | Diagnostic Imaging Report ---
PROCEDURE:CT CHEST WITHOUT CONTRAST COMPARISON:None. INDICATION:CHF TECHNIQUE: Routine protocol Volumetric CT chest. No intravenous or enteric contrast. Multiplanar reformatted images. DLP: 569.01 FINDINGS: Lungs: Bilateral intralobular septal thickening with groundglass opacity. Bibasilar segmental and bilateral upper lobe subsegmental atelectasis. Airways: Expiratory phase imaging limiting evaluation. Grossly patent. Pleura: Moderate pleural effusions bilaterally (right greater than left). Lymph nodes: Normal Pulmonary arteries: Pulmonary diameter 4.3 cm. Thoracic aorta and great vessels: Normal caliber. Aortic arch atherosclerosis. Heart and pericardium: Cardiomegaly area in postoperative sequela of CABG. Extensive [place] coronary artery calcification. No pericardial effusion. Subdiaphragmatic organs: Small volume perihepatic ascites. Gallbladder distention up to 15.6 cm. Abdominal aortic, SMA, SHEILA and splenic artery arteriosclerosis/atherosclerosis. Soft tissues: Mild diffuse fat stranding consistent with anasarca. Skeleton: Intact CONCLUSION: 1. Cardiomegaly with pulmonary edema and moderate pleural effusions consistent with congestive heart failure. 2. Pulmonary artery enlargement in keeping with pulmonary hypertension. 3. Bilateral lower lobe segmental and bilateral upper lobe subsegmental atelectasis. Superimposed pneumonia should be considered in the appropriate context. 4. Nonspecific hydropic gallbladder. Small volume perihepatic ascites. Dictated by: Martin Hastings M.D. on 12/13/2017 at 10:57 Electronically approved by: Martin Hastings M.D. on 12/13/2017 at 10:57
[2017-12-13] MEDS ORDERED: SOD POLYSTYRENE SULFONATE SUSP 15 GM/60 ML BTL PO ONE (11:20)
[2017-12-13 11:24] LABS: PLATELET ESTIMATE SLIGHTLY DECREASED; RBC MORPHOLOGY COMMENT NORMAL
[2017-12-13] MEDS ORDERED: LACTULOSE SYRUP 20 GM/30 ML UDC PO ONE (11:30)
[2017-12-13] MEDS: FUROSEMIDE INJ 10 MG/ML 4 ML VIAL IV SCH ×2 (11:37→17:17)
--- NOTE | 2017-12-13 14:40 | Diagnostic Imaging Report ---
PROCEDURE:US RETROPERITONEAL ( KIDNEY ). COMPARISON:Patients [facility], US, US RETROPERITONEAL ( KIDNEY )., 01/18/2015, 13:14. INDICATIONS:CKD, CREATININE 3.03 TECHNIQUE: Butler-scale and color sonographic images of the bilateral kidneys and bladder where obtained in transverse and longitudinal planes. FINDINGS: Markedly limited exam due to patient's large body habitus. RIGHT KIDNEY: Could not be visualized. LEFT KIDNEY: Could not be visualized. Bladder: Decompressed with Barron catheter in place CONCLUSION: Markedly limited exam, as the kidneys cannot be visualized. Aron Parker M.D. Dictated by: Aron Parker M.D. on 12/13/2017 at 14:42 Electronically approved by: Aron Parker M.D. on 12/13/2017 at 14:42
[2017-12-13] MEDS ORDERED: NON-FORMULARY MEDICATION (Insuln Asp Prt/Insulin Aspart (Novolog Mix 70-30 Flexpen Syrn) 2 SC SCH (17:00)
[2017-12-13] MEDS: INSULIN ASPART 70/30 100 UNITS/ML VIAL SC SCH (17:00)
[2017-12-13] MEDS: TRAMADOL HCL 50 MG TAB PO SCH ×2 (17:18→21:00)
[2017-12-13 18:06] LABS: CLARITY,URINE SL CLOUDY (CLEAR); COLOR,URINE YELLOW (YELLOW)
[2017-12-13 18:07] LABS: BILIRUBIN,URINE 1+ (NEGATIVE); KETONES,URINE TRACE (NEGATIVE); LEUKOCYTE ESTERASE ,URINE TRACE (NEGATIVE); NITRITE,URINE NEGATIVE (NEGATIVE); PROTEIN,URINE DIPSTICK 1+ (NEGATIVE); URINE UROBILINOGEN 1 mg/dL (0.2 - 1)
[2017-12-13 18:10] LABS: AMORPHOUS SEDIMENT,URINE FEW (FEW); BACTERIA,URINE MODERATE /HPF; EPITHELIAL CELLS,URINE MODERATE /LPF; RBC,URINE >50 /HPF (0-5); TRANSITIONAL EPI CELLS,URINE MODERATE
--- NOTE | 2017-12-13 18:45 | Consultation ---
DATE OF CONSULTATION: December 13, 2017 HISTORY OF PRESENT ILLNESS: Obtained from the chart and electronic records, and partly from daughter. not available. The patient gives some history, but very poor historian. He is very drowsy, sleepy, mildly short of breath. Renal consult for management of acute kidney injury. He has existing history of CKD4 apparently. I reviewed the records from last 3 admissions, and nevertheless a 77-year-old gentleman who has underlying history of coronary artery disease status post coronary artery bypass surgery, cardiomyopathy, ejection fraction 20% to 25%, history of hypertension, hypothyroidism, hyperlipidemia, congestive heart failure. He was brought in because of increased sleepiness, drowsiness and altered mental state. Currently laying supine and has obvious tremors of the fingers and hands. There is no history of Parkinson's. HOME MEDICATIONS: Include aspirin, Plavix, Aricept, Lasix, gabapentin, isosorbide, levothyroxine, pantoprazole, simvastatin, Aldactone, testosterone monthly and tramadol. CURRENT MEDICATIONS: Please see MAR for details. He is currently on albuterol, Atrovent nebulizers. Aspirin 81 mg daily. Plavix 75 mg daily. Furosemide 40 mg IV q.6. Insulin. Lactulose syrup. Levothyroxine. 74 mcg daily. Metoprolol 12.5 mg at bedtime. Pantoprazole. Simvastatin. He received one dose of Kayexalate per my order this morning. Has not had a bowel movement yet. He is also on Aldactone, which I am going to stop. ALLERGIES: NO DRUG ALLERGIES. SOCIAL HISTORY: Does not smoke or drink. Is . Lives with his . There are several family members in the room including daughter. Chest x-ray shows evidence of cardiomegaly with possible bilateral pleural effusion, mild right hilar congestion. This is per my exam. Blood cultures have been done. No urinalysis done. FAMILY HISTORY: Significant for hypertension. CURRENT LABS: White count 11.2 with a hemoglobin 11.6 with a sodium 136. Potassium 5.2. Bicarbonate 28. Creatinine 3.3. Baseline serum creatinine around 2.5. PHYSICAL EXAMINATION: GENERAL: Patient is very drowsy, stuporous, somewhat disoriented. VITALS: Blood pressure of 110/62, pulse rate 62. Afebrile. Oxygen saturation 98%. HEAD AND NECK: Cornea clear. Mucosa dry. LUNGS: Supine exam with occasional rales and wheezes. HEART: S1 and S2 audible. ABDOMEN: Otherwise soft and nontender. Distended, flank full. LOWER EXTREMITY EXAMINATION: Shows chronic skin changes with 1+ edema. IMPRESSION AND PLAN: Evidence of congestive heart failure. Upgvz-gq-npcstru kidney failure. Hyperkalemia. Mild metabolic acidosis. Altered mental status. Some spider in the chest area. Will order abdominal ultrasound. Rule out cirrhosis and severe cardiomyopathy per prior coronary artery bypass surgery. Hypertension. Multiple comorbid conditions. Will discontinue Aldactone. Gently diurese. Obtain spot urine protein creatinine ratio and urine culture. Will order an ammonia level. He was taking Neurontin at home which could be the reason why he has tremors. Further recommendations to follow. Job#: [id number]
[2017-12-13] MEDS: DONEPEZIL HCL 5 MG TAB PO SCH (20:57)
[2017-12-13] MEDS: METOPROLOL TARTRATE 25 MG TAB PO SCH (21:00)
[2017-12-13] MEDS ORDERED: SIMVASTATIN 20 MG TAB PO SCH ×2 (21:00)
[2017-12-13] MEDS ORDERED: SIMVASTATIN 40 MG TAB PO SCH (21:00)
[2017-12-13] MEDS ORDERED: METOLAZONE5 MG PO (21:37)
[2017-12-14] VITALS (7 sets, daily range): BP systolic 108–120; BP diastolic 52–79
[2017-12-14] MEDS: ALBUTEROL/IPRATROPIUM 3 ML NEB NEB PRN (00:30)
[2017-12-14] MEDS: FUROSEMIDE INJ 10 MG/ML 4 ML VIAL IV SCH ×2 (01:35→05:28)
[2017-12-14] MEDS: HYDROCODONE/APAP 10MG-325MG TAB PO PRN ×2 (02:16→13:18)
[2017-12-14] MEDS: LEVOTHYROXINE SODIUM 75 MCG TAB PO SCH (05:29)
[2017-12-14 06:09] LABS: ALBUMIN 2.7 g/dL (3.5-5.0); ALBUMIN/GLOBULIN RATIO 0.6 (0.8-2.0); ANION GAP 15.8 mmol/L (8-16); CALCIUM 8.7 mg/dL (8.4-10.2); CREATININE, SERUM 3.48 mg/dL (0.72-1.25); POTASSIUM 4.8 mmol/L (3.5-5.1)
--- NOTE | 2017-12-14 07:08 | Diagnostic Imaging Report ---
EXAMINATION: MRI of the brain without contrast. HISTORY: Change in mental status COMPARISON: Head CT on 12/12/2017 TECHNIQUE: Sagittal T1; axial DWI, T2, FLAIR, T1-IR, the axial T2 gradient echo and T2 spin-echo were not performed due to patient's clinical condition. IMAGE QUALITY: Motion artifact limits the evaluation of most of the sequences. The more inferior segment of the cerebellar hemispheres and medulla were not included on the axial DWI. FINDINGS: Parenchyma: 1. Scattered and moderate confluent periventricular and esparza radiata as well as bilateral frontal centrum semiovale white matter T2 hyperintense foci, most likely nonspecific chronic microvascular ischemic changes. 2. No mass, hemorrhage, no acute or chronic infarcts. Skull: Unremarkable. Vessels: Cannot be evaluated Extra-axial spaces: No abnormal signal intensity or mass effect. Brain volume: Within normal limits for age. Ventricles: No hydrocephalus or displacement. Foramen magnum: Unremarkable. Sella: Unremarkable. Paranasal / mastoid sinuses: No significant inflammatory disease. IMPRESSION: 1. Suboptimal study due to motion and incomplete study. Grossly no acute infarcts, mass, hydrocephalus or extra axial fluid collections. 2. Moderate chronic microvascular ischemic changes. Signed by: Dr. Angelic Manuel M.D. on 12/14/2017 7:05 AM
[2017-12-14] MEDS: INSULIN REGULAR, HUMAN 100 UNIT/1 ML 3ML VIAL SQ SCH ×4 (07:30→20:46)
[2017-12-14] MEDS ORDERED: PANTOPRAZOLE SOD 40 MG TABEC PO SCH (07:30)
--- NOTE | 2017-12-14 07:59 | Diagnostic Imaging Report ---
PROCEDURE:ABDOMINAL ULTRASOUND COMPARISON:CT chest 12/13/2017. INDICATIONS:R/O CIRRHOSIS FINDINGS: Liver: 17.7 cm in length and the right midclavicular line. Increased hepatic parenchymal echogenicity. No overt nodularity of the contour. No focal mass. Main portal vein: 0.9 Hepatopedal flow. Gallbladder: Contains echogenic sludge in the dependent portion. The gallbladder wall is mildly thickened. No pericholecystic fluid. Common Bile Duct: 0.5 cm in caliber. Sonographic Nunez's sign: Reported as negative. Right kidney: Not visualized secondary to bowel gas and patient body habitus. Left kidney: Not visualized secondary to bowel gas and patient body habitus. Spleen: Not visualized secondary to patient body habitus. Pancreas: The visualized portions of the pancreas are normal. Inferior vena cava: Patent Aorta: Non-aneurysmal proximally. Nonvisualized distally. Ascites: Mild perihepatic ascites. Small right pleural effusion.. CONCLUSION: Hepatomegaly with increased echogenicity compatible with steatosis. No overt sonographic evidence of cirrhosis. Gallbladder sludge with wall thickening, likely a consequence of underlying liver disease/hypoproteinemia in the setting of mild perihepatic ascites and with a negative sonographic Nunez's sign. Dictated by: Jeovany Samayoa M.D. on 12/14/2017 at 8:02 Electronically approved by: Jeovany Samayoa M.D. on 12/14/2017 at 8:02
[2017-12-14] MEDS: POLYETHYLENE GLYCOL 3350 17 GM PACK PO SCH (08:31)
[2017-12-14] MEDS: TRAMADOL HCL 50 MG TAB PO SCH (08:32)
[2017-12-14] MEDS: INSULIN ASPART 70/30 100 UNITS/ML VIAL SC SCH ×2 (08:32→16:47)
[2017-12-14] MEDS ORDERED: SPIRONOLACTONE 25 MG TAB PO SCH (09:00)
[2017-12-14] MEDS ORDERED: CLOPIDOGREL BISULFATE 75 MG TAB PO SCH (09:00)
[2017-12-14] MEDS ORDERED: LEVOTHYROXINE SODIUM 50 MCG TAB PO SCH (09:00)
[2017-12-14] MEDS ORDERED: NON-FORMULARY MEDICATION (Pantoprazole Sodium 40 MG) PO SCH (09:00)
[2017-12-14] MEDS ORDERED: ASPIRIN 81 MG CHEW TAB PO SCH (09:00)
--- NOTE | 2017-12-14 10:09 | Consultation ---
DATE OF CONSULTATION: December 13, 2017 CARDIOLOGY CONSULTATION REASON FOR CONSULTATION: Chest pain and CHF. HPI: This is a morbidly obese 77-year-old male with multiple medical problems that presented with altered mental status. According to the patient and family today, he has been having generalized weakness, numbness and tingling sensation, difficulty with walking, increased bilateral lower extremities edema, forgetfulness, and very weak that he saw his PCP, and was advised to come to the emergency room for evaluation. He has a history of systolic CHF with EF 20% to 25%. Recommended ICD and Life Vest last year, which he refused. He also has a history of CKD and PVD. He started having chest tightness on a scale of 3/10 with no radiation that got worse with laying flat. His troponin was negative. EKG showed junctional rhythm with T-wave abnormalities. BNP 2516. PAST MEDICAL HISTORY: Bradycardia, paroxysmal AFib, NSTEMI, CAD, diabetes, hypothyroidism, hyperlipidemia, hypertension, PVD, CKD, COPD, CAD with CABG. PAST SURGICAL HISTORY: Open heart surgery. FAMILY HISTORY: Positive for CAD. SOCIAL HISTORY: No smoking. No drinking. MEDICATIONS: See med list. ALLERGIES: HE IS NOT ALLERGIC TO ANY MEDICATIONS. REVIEW OF SYSTEMS: Negative except those mentioned above. PHYSICAL EXAMINATION VITAL SIGNS: Temperature 97, heart rate 67, blood pressure 115/52, respirations 20, oxygen saturation 95% on 2 L nasal cannula. GENERAL: He is morbidly obese. Awake and intermittently confused. HEENT: Mucous membranes moist. NECK: Supple. LUNGS: Bilateral with decreased breath sounds. CARDIOVASCULAR: S1 and S2 present. ABDOMEN: Soft. NEUROLOGICAL: He is not able to move lower extremities due to the edema. EXTREMITIES: Bilateral lower extremities positive with edema. LABS: Sodium 133, potassium 4.8, chloride 95, CO2 28, BUN 65, creatinine 3.48, glucose 107. White blood cells 11.2, hemoglobin 11.6, hematocrit 36.9, and platelets 146,000. PT 17.7, PTT 35.2 and INR 1.58. IMPRESSION 1. Systolic congestive heart failure. 2. Altered mental status. 3. Obesity. 4. Hypertension. 5. Coronary artery disease with coronary artery bypass graft. 6. Diabetes. 7. Chronic kidney disease. ASSESSMENT AND PLAN: He had a recent echocardiogram with depressed systolic function, EF 20% to 25%. Had recommended ICD and Life Vest, which he still refused. Will continue gentle diuresis. Blood pressure and heart rate are stable. Ammonia level today 82. Further cardiac workup pending clinical cause. Thank you for this consultation. DICTATED BY AMENA BONE NP Job#: [id number] [place]
[2017-12-14] MEDS ORDERED: VANCOMYCIN 1GM/NS 250 ML 250 ML IV ONE (10:15)
[2017-12-14] MEDS: PIPERACILLIN/TAZO 2.25 GM 50 ML IV SCH ×3 (10:15→22:17)
[2017-12-14] MEDS ORDERED: SODIUM CHLORIDE 0.9% 1000ML 1,000 ML ONE (11:20)
[2017-12-14] MEDS ORDERED: ALBUMIN 5% 250ML IV ONE (12:00)
[2017-12-14] MEDS: MORPHINE SULFATE 2 MG/ML SYR IV PRN (13:41)
[2017-12-14] MEDS ORDERED: SODIUM CHLORIDE 0.9% 1000ML 1,000 ML IV SCH (18:00)
[2017-12-14] MEDS: METOPROLOL TARTRATE 25 MG TAB PO SCH (21:00)
[2017-12-14] MEDS: DONEPEZIL HCL 5 MG TAB PO SCH (21:10)
[2017-12-15 01:04] VITALS: BP 126/77
[2017-12-15] MEDS: MORPHINE SULFATE 2 MG/ML SYR IV PRN ×6 (01:42→18:19)
[2017-12-15] MEDS: LEVOTHYROXINE SODIUM 75 MCG TAB PO SCH (05:20)
[2017-12-15] MEDS: PIPERACILLIN/TAZO 2.25 GM 50 ML IV SCH (05:46)
[2017-12-15 06:14] VITALS: BP 108/55
[2017-12-15] MEDS: INSULIN REGULAR, HUMAN 100 UNIT/1 ML 3ML VIAL SQ SCH (07:30)
[2017-12-15 08:44] VITALS: BP 168/87
[2017-12-15 08:46] VITALS: BP 93/58
[2017-12-15 10:51] LABS: ALBUMIN 2.7 g/dL (3.5-5.0); ALBUMIN/GLOBULIN RATIO 0.6 (0.8-2.0); ANION GAP 17.3 mmol/L (8-16); CALCIUM 8.8 mg/dL (8.4-10.2); CREATININE, SERUM 3.92 mg/dL (0.72-1.25); POTASSIUM 5.3 mmol/L (3.5-5.1)
[2017-12-15] MEDS ORDERED: FUROSEMIDE INJ 10 MG/ML 4 ML VIAL IV ONE (11:45)
--- NOTE | 2017-12-15 12:47 | Diagnostic Imaging Report ---
Examination: Single AP view of the chest. COMPARISON: CT chest 12/13/2017 INDICATION: Abnormal breath sounds IMPRESSION: 1. Lines and Tubes: None 2. Lungs are well-inflated. Layering moderate right pleural effusion. Increased retrocardiac density, likely representing effusion and associated atelectasis. 3. Enlarged cardiac silhouette. Central pulmonary venous congestion. CABG changes. 4. No acute bony abnormalities. Midline sternotomy wires. Signed by: Dr. Aron Parker M.D. on 12/15/2017 12:44 PM
[2017-12-15 16:00] VITALS: BP 109/68
[2017-12-15 20:00] VITALS: BP 113/59
[2017-12-15] MEDS: LORAZEPAM INJ 2 MG/ML VIAL IV PRN (21:59)
[2017-12-16] VITALS: BP 129/61
[2017-12-16 04:00] VITALS: BP 123/59
[2017-12-16 08:07] VITALS: BP 101/58
[2017-12-16] MEDS: LORAZEPAM INJ 2 MG/ML VIAL IV PRN ×2 (10:15→21:22)
[2017-12-16 16:00] VITALS: BP 122/64
[2017-12-16 20:04] VITALS: BP 111/69
[2017-12-16 23:14] VITALS: BP 111/69
[2017-12-17] VITALS: BP 144/80
[2017-12-17] MEDS: MORPHINE SULFATE 2 MG/ML SYR IV PRN (03:07)
[2017-12-17 04:00] VITALS: BP 128/58
[2017-12-17 07:15] VITALS: BP 142/72
[2017-12-17 09:01] VITALS: BP 121/72
[2017-12-17 16:22] VITALS: BP 116/65
[2017-12-17] MEDS: LORAZEPAM INJ 2 MG/ML VIAL IV PRN (18:25)
[2017-12-17 20:00] VITALS: BP 95/48
[2017-12-18] VITALS: BP 106/55
[2017-12-18 04:00] VITALS: BP 116/63
[2017-12-18] MEDS: LORAZEPAM INJ 2 MG/ML VIAL IV PRN (07:22)
[2017-12-18 09:21] VITALS: BP 92/58
[2017-12-18] MEDS: MORPHINE SULFATE 2 MG/ML SYR IV PRN (12:09)
[2017-12-18 12:32] VITALS: BP 97/59
--- NOTE | 2017-12-18 18:57 | Discharge Summary ---
SCIENTIST IMMUNOLOGY: Dr. Lili Malik and Dr. Brennon Blanco. FINAL DIAGNOSES: 1. Hospice care for palliative care. 2. Advanced cardiomyopathy with ejection fraction of 15% to 20%. 3. Worsening renal failure stage 4 to 5 with fluid overload. SUMMARY: This is a 77-year-old male who progressively worsened. The patient with baseline chronic congestive heart failure, systolic dysfunction and hypertension with chronic kidney disease stage 4. He is in advanced stage now with fluid retention. Patient is morbidly obese. He had multiple medical problems including previous coronary artery disease who refused defibrillator. The patient is wanting palliative care with hospice care. He told family that he did not want any aggressive measures given his status. He is declining for the past month, progressively weakened and unable to do any of his activity. Palliative measure is given to the patient per his wishes, and also family agreeable as well given his age and his condition overall. The patient is placed on IV Ativan and morphine. The patient wanted palliative measures. [facility] consulted. The patient will go to hospice care as an outpatient with comfort measures. Job#: [id number]
== END 2017-12-18 14:04 | disposition hospice, inpatient (51) | DRG 291 ==
LOC: ER 06:33 → ERHOLD 08:57 → MED/SURG2 12:04
PROVIDERS: ADMIT Internal Medicine; ATTEND Internal Medicine
DX: I13.2 Hypertensive heart and chronic kidney disease with heart failure and with stage 5 chronic kidney disease, or end stage renal disease (principal); I50.23 Acute on chronic systolic (congestive) heart failure; G92 Toxic encephalopathy; N18.5 Chronic kidney disease, stage 5; E87.2 Acidosis; N39.0 Urinary tract infection, site not specified; Z68.38 Body mass index [BMI] 38.0-38.9, adult; I25.10 Atherosclerotic heart disease of native coronary artery without angina pectoris; Z95.1 Presence of aortocoronary bypass graft; E66.01 Morbid (severe) obesity due to excess calories; E11.22 Type 2 diabetes mellitus with diabetic chronic kidney disease; E87.5 Hyperkalemia; E11.65 Type 2 diabetes mellitus with hyperglycemia; Z66 Do not resuscitate; Z51.5 Encounter for palliative care
CPT/HCPCS: 36415; 70450; 70551; 71045; 71046; 71250; 76700; 76770; 80053; 81001; 82140; 82550; 82553; 82948; 83605; 83880; 84484; 85025; 85610; 85730; 87040; 87071; 87086; 87205; 93005; 93880; 94640; 97139; 99285; J0692; J1815; J1940; J2060; J2270; J2543; J3370; J7030